=== PATIENT | female | born 1995 | race Caucasian/White ===

== ENCOUNTER 2018-12-01 11:23 | Day surgery (SDC) | payer OTHER ==
[~2018-12-01 11:23] MED LIST: Dexamethasone 20 MG/5 ML VIAL ONE; Glycopyrrolate 0.2 MG/ML 5 ML SYRINGE ONE; Ketorolac Tromethamine 30 MG/ML VIAL ONE; Lidocaine 1% PF 5 ML VIAL ONE; Ondansetron PF 4 MG/2 ML Vial ONE; PROPOFOL 200 MG/20 ML VIAL ONE; Rocuronium Bromide 10 MG/ML (10ML VIAL) ONE; Succinylcholine Chloride 20 MG/ML 10 ml SYRINGE FS ONE
[2018-12-01] MEDS ORDERED: Fentanyl 100 MCG/2 ML VIAL ONE (11:47)
[2018-12-01] MEDS ORDERED: Bupivacaine/Epinephrine 0.25% 30 ML VIAL ONE (11:52)
[2018-12-01] MEDS ORDERED: HYDROcodone/Acetaminophen 5/325 mg Tablet ONE (13:59)
--- NOTE | 2018-12-01 16:57 | OP ---
DATE OF PROCEDURE: 12/01/2018 PREOPERATIVE DIAGNOSIS: Acute appendicitis. PROCEDURE PERFORMED: Laparoscopic appendectomy. INDICATIONS: A 23-year-old female who has a 2-day history of abdominal pain migrated to the right lower quadrant associated with nausea and vomiting. CT scan showing appendicitis. FINDINGS: Acute suppurative, nonperforated appendicitis. DESCRIPTION OF PROCEDURE: After informed consent was obtained, the patient was taken to the operating room and given general endotracheal anesthesia. She was placed in supine position. Abdomen was prepped and draped in usual fashion. Local anesthesia infiltrated subcutaneously and deep, and a subumbilical incision was performed. Subcu divided sharply. The fascia was grasped with 2 stay sutures of 0 Vicryl, placed in each side of midline. Midline incised. Digital palpation revealed no local adhesions. A blunt 12-mm trocar inserted. Pneumoperitoneum was created to a pressure of 15 mmHg. The patient placed in the Trendelenburg [id number] position and under direct vision, two 5-mm ports were placed; one suprapubic, one right lateral abdomen. The appendix was found. The mesoappendix divided utilizing the LigaSure. The base of the appendix was divided utilizing the linear 45-mm stapler. The appendix was placed in Endosac, removed from the abdomen in the Endosac. Hemostasis was assured. The abdomen irrigated. Irrigation fluid removed. Trocars and retractors removed. The fascia closed with interrupted 0 Vicryl suture. The skin closed with interrupted 4-0 Rapide. Dermabond applied. The patient tolerated the procedure well, transferred to Recovery in good condition. Sponge and needle count verified correct x2. Job ID: [id number]
== END 2018-12-01 15:18 | disposition home or self-care (01) ==
LOC: SDC 11:23
PROVIDERS: ATTEND Surgery
PROC: 0DTJ4ZZ Resection of Appendix, Percutaneous Endoscopic Approach (ICD-10-PCS; principal; 2018-12-01)
DX: K35.80 Unspecified acute appendicitis (principal)
CPT/HCPCS: 88304; J1100; J1885; J2001; J2405; J2704; J3010